=== PATIENT | female | born 1955 | race Caucasian/White ===

== ENCOUNTER 2018-04-14 06:47 | Inpatient (IN) | payer OTHER | END 2018-04-23 19:35 | LOC: EDH 06:47 → 4CH 04-23 13:08 → EDHIP 09:23 → 4CH 17:49 | PROC: 0B9G8ZX Drainage of Left Upper Lung Lobe, Via Natural or Artificial Opening Endoscopic, Diagnostic (ICD-10-PCS; principal; ~2018-04-14) | DX: J18.1 Lobar pneumonia, unspecified organism (principal); D69.6 Thrombocytopenia, unspecified; E11.22 Type 2 diabetes mellitus with diabetic chronic kidney disease; J90 Pleural effusion, not elsewhere classified; D70.9 Neutropenia, unspecified; I48.0 Paroxysmal atrial fibrillation; R04.2 Hemoptysis; N18.3 Chronic kidney disease, stage 3 (moderate); E11.9 Type 2 diabetes mellitus without complications; D64.9 Anemia, unspecified; R63.4 Abnormal weight loss; I10 Essential (primary) hypertension; E87.6 Hypokalemia; E78.2 Mixed hyperlipidemia; I25.10 Atherosclerotic heart disease of native coronary artery without angina pectoris; R53.81 Other malaise; I12.9 Hypertensive chronic kidney disease with stage 1 through stage 4 chronic kidney disease, or unspecified chronic kidney disease; R04.0 Epistaxis ==

== ENCOUNTER 2018-05-21 05:33 | Day surgery (SDC) | payer OTHER ==
[~2018-05-21] VITALS: Ht 137.2 cm; Wt 51.3 kg
[~2018-05-21 05:33] MED LIST: AMLO10TA7 PO; ATEN50TA PO; ATOR10 PO; ERGO500014 PO; FAMO20TA8 PO; FLUC200T8 PO; HYDR-4153 PO; ISOS30TA6 PO; LINA5TAB PO; LISI-613 PO; SERT100T12 PO
[2018-05-21] MEDS ORDERED: SODIUM CHLORIDE 0.9% 1000ML 1,000 ML IV ONE (05:47)
[2018-05-21 06:14] VITALS: BP 162/58
[2018-05-21] MEDS ORDERED: PROPOFOL 1000 MG/100 ML 100 ML IV ONE (06:44)
[2018-05-21 07:38] VITALS: BP 134/66
[2018-05-21 07:43] VITALS: BP 155/68
[2018-05-21 07:48] VITALS: BP 155/66
[2018-05-21 07:53] VITALS: BP 164/75
[2018-05-21 08:00] VITALS: BP 157/77
== END 2018-05-21 08:10 | disposition home or self-care (01) ==
LOC: DAH 05:33 → ENDO 05:33
PROVIDERS: ATTEND Internal Medicine
DX: Z12.11 Encounter for screening for malignant neoplasm of colon (principal); K63.5 Polyp of colon; K64.0 First degree hemorrhoids; K57.30 Diverticulosis of large intestine without perforation or abscess without bleeding; D50.9 Iron deficiency anemia, unspecified; K26.9 Duodenal ulcer, unspecified as acute or chronic, without hemorrhage or perforation; K31.89 Other diseases of stomach and duodenum; K22.8 Other specified diseases of esophagus; Z79.899 Other long term (current) drug therapy; Z98.890 Other specified postprocedural states; F32.9 Major depressive disorder, single episode, unspecified; K21.9 Gastro-esophageal reflux disease without esophagitis; I12.9 Hypertensive chronic kidney disease with stage 1 through stage 4 chronic kidney disease, or unspecified chronic kidney disease; E11.22 Type 2 diabetes mellitus with diabetic chronic kidney disease; N18.9 Chronic kidney disease, unspecified; E78.2 Mixed hyperlipidemia; G47.00 Insomnia, unspecified; Z79.01 Long term (current) use of anticoagulants; Z79.4 Long term (current) use of insulin; Z79.84 Long term (current) use of oral hypoglycemic drugs
CPT/HCPCS: 43239; 45380; 82948 ×2; A4606; J2704; J7030

== ENCOUNTER 2018-10-04 20:41 | Observation (INO) | payer OTHER ==
[~2018-10-04] VITALS: Ht 137.2 cm; Wt 51.9 kg
[~2018-10-04 20:41] MED LIST changes: -ERGO500014 PO
[2018-10-04 21:38] LABS: EOSINOPHILS % (AUTO) 9.2 % (0.0-8.0); HEMATOCRIT 36.5 % (36-48); MEAN CORPUSCULAR HGB CONC 33.7 g/dL (32.0-36.0); NEUTROPHILS % (AUTO) 64.8 % (40.0-77.0); NUCLEATED RED BLOOD CELLS 0.1 % (0.0-0.19); PLATELET COUNT (AUTO) 44 K/uL (130-400); RED BLOOD CELL COUNT(AUTO) 3.97 MIL/uL (4.00-5.50); RED CELL DISTRIBUTION WIDTH 14.5 % (11.0-15.5); WHITE BLOOD COUNT (AUTO) 4.5 K/uL (4.8-10.8)
[2018-10-04 21:49] LABS: CREATININE 2.2 mg/dL (0.5-1.5); POTASSIUM 4.2 mmol/L (3.5-5.1)
[2018-10-04] MEDS ORDERED: ASPIRIN 325 MG TABLET ONE (21:53)
[2018-10-04 21:54] LABS: ALBUMIN 3.6 g/dL (3.5-5.0); BILIRUBIN,TOTAL 0.4 mg/dL (0.2-1.0); TOTAL PROTEIN, SERUM 7.5 g/dL (6.0-8.3)
[2018-10-04] MEDS ORDERED: NITROGLYCERIN 1GM/1 INCH PACKET TD ONE (21:54)
[2018-10-04 21:59] LABS: APPEARANCE,URINE Clear (CLEAR); BILIRUBIN,URINE Negative (NEGATIVE); COLOR,URINE Yellow (YELLOW); GLUCOSE, URINE (UA) Negative (NEGATIVE); KETONES,URINE Negative (NEGATIVE); LEUKOCYTE ESTERASE ,URINE Small (NEGATIVE); NITRATE,URINE Negative (NEGATIVE); OCCULT BLOOD,URINE Negative (NEGATIVE); PROTEIN,URINE POS 2+ mg/dL (NEGATIVE); UROBILINOGEN,URINE 0.2 mg/dL (0.2-1.0)
[2018-10-04 22:19] LABS: BACTERIA,URINE None Seen /HPF (None Seen); MUCUS,URINE None Seen LPF (None Seen); SQUAMOUS EPITHELIAL CELL,UR None Seen /HPF (0-2)
[2018-10-04] MEDS ORDERED: ACETAMINOPHEN 325 MG TAB PO PRN (23:45)
[2018-10-04] MEDS ORDERED: ONDANSETRON HCL 4 MG/2 ML VIAL IV PRN (23:45)
[2018-10-04] MEDS ORDERED: NITROGLYCERIN 0.4 MG SL TAB SL PRN (23:45)
[2018-10-04] MEDS ORDERED: MORPHINE SULFATE 2 MG/ML 1ML SYG IV PRN (23:45)
[2018-10-04 23:49] LABS: CHOLESTEROL 129 mg/dL (<200); HDL CHOLESTEROL 112 mg/dL (35-85); LDL DIRECT 65 mg/dL (0-99); TRIGLYCERIDES 95 mg/dL (30-200)
[2018-10-05] VITALS (8 sets, daily range): BP systolic 151–203; BP diastolic 76–88
[2018-10-05] MEDS ORDERED: MORPHINE SULFATE 2 MG/ML 1ML SYG IV PRN (00:15)
[2018-10-05] MEDS ORDERED: OMEP40CA37 PO (04:18)
[2018-10-05] MEDS ORDERED: HYDR100T27 PO (04:18)
[2018-10-05] MEDS ORDERED: FERR325T22 PO (04:18)
[2018-10-05] MEDS: HYDRALAZINE HCL 20 MG/ML VIAL IV PRN (04:36)
[2018-10-05] MEDS: CEFTRIAXONE SODIUM 1 GM IVP SCH (04:36)
[2018-10-05 06:10] LABS: CREATINE KINASE, TOTAL 36 U/L (21-232); MYOGLOBIN 43 ng/mL (10-92); TROPONIN I < 0.04 ng/mL (0.00-0.06)
[2018-10-05] MEDS: HYDRALAZINE HCL 25 MG TABLET PO SCH ×3 (06:19→21:42)
[2018-10-05] MEDS: ENOXAPARIN SODIUM 30 MG/0.3 ML SQ SCH (08:31)
[2018-10-05] MEDS: ASPIRIN 325 MG TABLET PO SCH (08:34)
[2018-10-05] MEDS: FAMOTIDINE 20MG TAB 20 MG TAB PO SCH (08:34)
[2018-10-05] MEDS: LISINOPRIL 20 MG TABLET PO SCH ×2 (08:34→21:41)
[2018-10-05] MEDS: FERROUS SULFATE 325 MG TABLET.DR PO SCH (08:35)
[2018-10-05] MEDS: ATENOLOL 50 MG TABLET PO SCH ×2 (08:35→21:42)
[2018-10-05] MEDS: AMLODIPINE BESYLATE 5 MG TAB PO SCH (08:35)
[2018-10-05] MEDS: SERTRALINE HCL 50 MG TABLET PO SCH (08:35)
[2018-10-05] MEDS ORDERED: METOPROLOL TARTRATE 25 MG TAB PO SCH (09:00)
--- NOTE | 2018-10-05 09:00 | NUR ---
0900 WERE EXPLAIN TO PT , IN DETAILS REGARDING HER HOME MEDICATIONS WERE RESUME AND HER B/P MEDICATIONS TO HELP HER WITH HER B/P KEEPING STABLE.
[2018-10-05 10:20] LABS: CREATINE KINASE, TOTAL 32 U/L (21-232); MYOGLOBIN 38 ng/mL (10-92); TROPONIN I < 0.04 ng/mL (0.00-0.06)
--- NOTE | 2018-10-05 13:41 | NUR ---
DCP CM met with pt discussed dc plans. Pt is independent prior to admission, lives at home with spouse. Denies any eqiupments/services. Pt feels safe to go back home. DC plan to home once stable. CM to cont to follow up. Addendum: 10/05/18 at 1343 by MICHAEL SULTANA LVN CM Amended: Links added.
--- NOTE | 2018-10-05 16:00 | NUR ---
SHAHBAZ King. HERE FOR DR MILLAN . ASSESS IMAGINING OF HER CT SCAN .AND ALSO SPOKE WITH PT RE GARDING PLAN OF CARE. KEEP NPO AFTE MIDNITE AND WILL SPEAK WITH DR. STALLINGS OF ASSESSMENT
[2018-10-05 16:38] LABS: CREATINE KINASE, TOTAL 32 U/L (21-232); MYOGLOBIN 47 ng/mL (10-92); TROPONIN I < 0.04 ng/mL (0.00-0.06)
[2018-10-05] MEDS ORDERED: ATORVASTATIN CALCIUM 20 MG TABLET PO SCH (21:00)
[2018-10-05] MEDS: METOCLOPRAMIDE 10 MG/2 ML VIAL IVP SCH (21:40)
[2018-10-06] VITALS: BP 166/79
[2018-10-06 04:00] VITALS: BP 192/91
[2018-10-06] MEDS: CEFTRIAXONE SODIUM 1 GM IVP SCH (05:03)
[2018-10-06] MEDS: HYDRALAZINE HCL 25 MG TABLET PO SCH ×2 (05:05→13:37)
[2018-10-06 06:00] VITALS: BP 180/74
[2018-10-06] MEDS: METOCLOPRAMIDE 10 MG/2 ML VIAL IVP SCH ×3 (06:29→15:46)
[2018-10-06 07:56] VITALS: BP 163/73
[2018-10-06] MEDS: ASPIRIN 325 MG TABLET PO SCH (09:00)
[2018-10-06] MEDS: ENOXAPARIN SODIUM 30 MG/0.3 ML SQ SCH (09:00)
[2018-10-06] MEDS: FERROUS SULFATE 325 MG TABLET.DR PO SCH (09:51)
[2018-10-06] MEDS: AMLODIPINE BESYLATE 5 MG TAB PO SCH (09:51)
[2018-10-06] MEDS: LISINOPRIL 20 MG TABLET PO SCH (09:52)
[2018-10-06] MEDS: FAMOTIDINE 20MG TAB 20 MG TAB PO SCH (09:52)
[2018-10-06] MEDS: SERTRALINE HCL 50 MG TABLET PO SCH (09:52)
[2018-10-06] MEDS: ATENOLOL 50 MG TABLET PO SCH (09:53)
[2018-10-06 11:27] VITALS: BP 172/77
[2018-10-06] MEDS: HYDRALAZINE HCL 20 MG/ML VIAL IV PRN (11:49)
[2018-10-06 16:38] VITALS: BP 159/69
[2018-10-06] MEDS ORDERED: METO5 PO (17:58)
--- NOTE | 2018-10-06 20:06 | NUR ---
PATIENT DISCHARGE PATIENT DISCHARGED, IV DISCONTINUED, CATHLON INTACT, BLEEDING CONTROLLED, PATIENT TOLERATED WITHOUT INCIDENT.
== END 2018-10-06 19:55 | disposition home or self-care (01) ==
LOC: EDH 20:41 → EDHIP 23:03 → 3BH 10-05 03:41
PROVIDERS: ADMIT Family Medicine; ATTEND Family Medicine
DX: K43.9 Ventral hernia without obstruction or gangrene (principal); N39.0 Urinary tract infection, site not specified; I12.9 Hypertensive chronic kidney disease with stage 1 through stage 4 chronic kidney disease, or unspecified chronic kidney disease; E11.22 Type 2 diabetes mellitus with diabetic chronic kidney disease; N18.4 Chronic kidney disease, stage 4 (severe); E78.5 Hyperlipidemia, unspecified; E11.43 Type 2 diabetes mellitus with diabetic autonomic (poly)neuropathy; K31.84 Gastroparesis; Z87.11 Personal history of peptic ulcer disease; Z88.5 Allergy status to narcotic agent
CPT/HCPCS: 36415 ×2; 74176; 80053; 80061; 81001; 82150; 82550 ×3; 83690; 83874 ×3; 83880; 84484 ×4; 85025; 87088; 93005; 96374; 96375; 96376; 99284; G0378 ×45; J0360 ×2; J0696 ×2; J2765 ×4; 96365; J1650

== ENCOUNTER → 2018-12-03 | Outpatient (CLI) | payer OTHER ==
[~2018-12-03] MED LIST changes: +FERR325T22 PO; -FLUC200T8 PO; -HYDR-4153 PO; +HYDR100T27 PO; -ISOS30TA6 PO; +METO5 PO; +OMEP40CA13 PO
== END | disposition home or self-care (01) ==
LOC: RAH 07:29
PROVIDERS: ATTEND Family Medicine
DX: I12.9 Hypertensive chronic kidney disease with stage 1 through stage 4 chronic kidney disease, or unspecified chronic kidney disease (principal); N18.9 Chronic kidney disease, unspecified; N27.1 Small kidney, bilateral
CPT/HCPCS: 76770; 93975

== ENCOUNTER 2019-02-24 21:44 | Emergency (ER) | payer OTHER ==
[2019-02-24] MEDS ORDERED: FENTANYL CITRATE PF 50 MCG/1 ML 2ML VIAL ONE (21:59)
[2019-02-24 22:49] LABS: BASOPHILS % (AUTO) 0.4 % (0.0-5.0); EOSINOPHILS % (AUTO) 1.5 % (0.0-8.0); HEMATOCRIT 35.2 % (36-48); LYMPHOCYTES % (AUTO) 8.8 % (21.0-51.0); MEAN CORPUSCULAR HEMOGLOBIN 29.5 pg (27.0-33.0); MEAN CORPUSCULAR HGB CONC 33.5 g/dL (32.0-36.0); NEUTROPHILS % (AUTO) 83.8 % (40.0-77.0); PLATELET COUNT (AUTO) 54 K/uL (130-400); RED CELL DISTRIBUTION WIDTH 15.3 % (11.0-15.5); WHITE BLOOD COUNT (AUTO) 8.6 K/uL (4.8-10.8)
[2019-02-24 23:00] LABS: CREATININE 1.7 mg/dL (0.5-1.5); POTASSIUM 3.1 mmol/L (3.5-5.1)
[2019-02-24 23:04] LABS: ALBUMIN 3.3 g/dL (3.5-5.0); BILIRUBIN,TOTAL 0.6 mg/dL (0.2-1.0); TOTAL PROTEIN, SERUM 6.8 g/dL (6.0-8.3)
[2019-02-24 23:07] LABS: PLATELET MORPHOLOGY COMMENT DECREASED
[2019-02-24 23:25] LABS: INR 1.02 (0.85-1.15); PROTHROMBIN TIME 10.7 SEC (9.6-11.6)
[2019-02-25] MEDS ORDERED: TETANUS/DIPHTHERIA TOXOID [ADULT] 0.5 ML VIAL IM ONE (00:27)
[2019-02-25] MEDS ORDERED: LABETALOL 20 MG/4 ML DISP.SYRIN IV ONE (01:31)
== END 2019-02-25 02:34 | disposition home or self-care (01) ==
LOC: EDH 21:44
DX: S00.83XA Contusion of other part of head, initial encounter (principal); S49.92XA Unspecified injury of left shoulder and upper arm, initial encounter; M54.2 Cervicalgia; M54.6 Pain in thoracic spine; E11.9 Type 2 diabetes mellitus without complications; I10 Essential (primary) hypertension; Z88.6 Allergy status to analgesic agent; Z98.890 Other specified postprocedural states; W18.39XA Other fall on same level, initial encounter; Y93.89 Activity, other specified; Y92.89 Other specified places as the place of occurrence of the external cause; Y99.8 Other external cause status
CPT/HCPCS: 36415; 70450; 71250; 72125; 73030; 74176; 80053; 84484; 85025; 85610; 85730; 90471; 90714; 93005; 96374; 96375; 99285; J3010

== ENCOUNTER → 2019-04-26 | Outpatient (CLI) | payer OTHER | END | disposition home or self-care (01) | LOC: OIH 13:07 | PROVIDERS: ATTEND Internal Medicine | DX: S82.891D Other fracture of right lower leg, subsequent encounter for closed fracture with routine healing (principal); M81.0 Age-related osteoporosis without current pathological fracture; X58.XXXD Exposure to other specified factors, subsequent encounter | CPT/HCPCS: 73600 ==

== ENCOUNTER → 2019-09-28 | Outpatient (CLI) | payer OTHER ==
[~2019-09-28] MED LIST changes: +ALBUMIN (HUMAN) 25% 200 ML IV SCH
[2019-09-28 10:05] LABS: BASOPHILS % (AUTO) 0.7 % (0.0-5.0); EOSINOPHILS % (AUTO) 4.4 % (0.0-8.0); HEMATOCRIT 34.9 % (36-48); LYMPHOCYTES % (AUTO) 14.5 % (21.0-51.0); MEAN CORPUSCULAR HEMOGLOBIN 28.7 pg (27.0-33.0); MEAN CORPUSCULAR HGB CONC 32.1 g/dL (32.0-36.0); MEAN CORPUSCULAR VOLUME 89.5 fL (79-99); MONOCYTES % (AUTO) 5.6 % (3.0-13.0); NEUTROPHILS % (AUTO) 74.5 % (40.0-77.0); PLATELET COUNT (AUTO) 110 K/uL (130-400); RED CELL DISTRIBUTION WIDTH 14.6 % (11.0-15.5); WHITE BLOOD COUNT (AUTO) 5.9 K/uL (4.8-10.8)
[2019-09-28 10:18] LABS: ALBUMIN 2.2 g/dL (3.5-5.0); BILIRUBIN,TOTAL 0.5 mg/dL (0.2-1.0); CREATININE 1.6 mg/dL (0.5-1.5); POTASSIUM 3.2 mmol/L (3.5-5.1); TOTAL PROTEIN, SERUM 6.9 g/dL (6.0-8.3)
[2019-09-28 10:19] LABS: INR 1.13 (0.85-1.15); PROTHROMBIN TIME 12.1 SEC (9.6-11.6)
--- NOTE | 2019-09-28 10:20 | NUR ---
BP 220/120 PATIENT ARRIVED TO ROOM AND CONNECTED TO MONITORS. BP 220/120. PT STATES, "I TAKE BP MEDS BUT I DIDN'T TAKE THEM THIS MORNING. BUT I ALWAYS HAVE MY BP LIKE THAT." RELAXATION TECHNIQUES ATTEMPTED.
--- NOTE | 2019-09-28 10:49 | NUR ---
CALLED DR. DELUCA AND/OR COUNTERSINKER BALANCE SCREW HOLE. BP 226/125, HR 93/MIN. PT ASYMPTOMATIC. SPOKE TO MAGDALENA HENRY NP. STATES PATIENT TO TAKE MEDS SOON SHE ARRIVES HOME AND SHE IS TO RECHECK BP AT HOME. MAGDALENA STATES, "I WILL CALL PATIENT THIS AFTERNOON TO RECHECK ON HER." INFORMED PATIENT AND SPOUSE MR. SALAS OF FINDING AND TO MAKE SURE PATIENT TAKES ALL HER BP MEDS BECAUSE HER BP WAS EXTREMELY HIGH 220/120 AND TO RECHECK HER BP AT HOME AND TO BE WAITING FOR MAGDALENA THE COUNTERSINKER BALANCE SCREW HOLE PHONE CALL. MR. SALAS STATES, "OH YES THAT WHAT SHE NORMALLY RUNS." HE VERBALIZED UNDERSTANDING OF INSTRUCTIONS BY STATING YES I'LL MAKE SURE SHE TAKES HER MEDS WHEN SHE GETS HOME.
--- NOTE | 2019-09-28 11:05 | NUR ---
U/S GUIDED PARACENTESIS PROCEDURE PERFORMED BY DR. RUDOLPH. PUNCTURE SITE RIGHT LOWER QUADRANT AND PATIENT TOLERATED PROCEDURE WELL. TOTAL REMOVED 9.0 LITERS OF CLOUDY YELLOW FLUID. END OF PROCEDURE AT 1135. CATHETER REMOVED AND DRESSING APPLIED. NO BLEEDING NOTED. ALBUMIN 25% 50 GRAMS GIVEN IV PER ALBUMIN PROTOCOL. PIV DCD, BANDAID APPLIED, NO BLEEDING NOTED. DISCHARGE INSTRUCTION GIVEN TO PATIENT AND VERBALIZED UNDERSTANDING. DISCHARGED VIA W/C. AAO X 3 WITH NO C/O PAIN.
[2019-09-28 14:06] LABS: APPEARANCE BODY FLUID CLEAR (CLEAR); BODY FLUID WBC 93 /cu. mm.; COLOR,BODY FLUID YELLOW (LT YELLOW); SPECIMENTYPE,BODY FLUID ASCITES; TOTAL VOLUME,BODY FLUID 9000 mL
[2019-09-28 14:07] LABS: BODY FLUID RBC 762 /cu. mm.
[2019-09-28 14:13] LABS: ALBUMIN,BODY FLUID 0.7 g/dL
[2019-09-28 14:18] LABS: BF EOSINOPHIL 4 %; BF LYMPHOCYTE 19 %; BF MESOTHELIAL 68 %; BF MONOCYTE 8 %
== END ==
LOC: RAH 09:24
PROVIDERS: ATTEND Internal Medicine Gastroenterology
DX: R18.8 Other ascites (principal); K74.60 Unspecified cirrhosis of liver
CPT/HCPCS: 36415; 49083; 80053; 82042; 84157; 85025; 85610; 87071; 87205; 89051; A4215; P9046; 96365

== ENCOUNTER 2019-10-01 10:59 | Inpatient (IN) | payer OTHER ==
[~2019-10-01] VITALS: Ht 139.7 cm; Wt 46.0 kg
[~2019-10-01 10:59] MED LIST changes: -ALBUMIN (HUMAN) 25% 200 ML IV SCH
[2019-10-01] MEDS ORDERED: DEXTROSE 50%-WATER 50 ML DISP.SYRIN IV ONE ×2 (11:02→15:09)
[2019-10-01 11:28] LABS: BASOPHILS % (AUTO) 0.1 % (0.0-5.0); LYMPHOCYTES % (AUTO) 5.8 % (21.0-51.0); MEAN CORPUSCULAR HEMOGLOBIN 29.4 pg (27.0-33.0); MEAN CORPUSCULAR HGB CONC 31.3 g/dL (32.0-36.0); MEAN CORPUSCULAR VOLUME 93.8 fL (79-99); MONOCYTES % (AUTO) 2.5 % (3.0-13.0); NUCLEATED RED BLOOD CELLS 0.1 % (0.0-0.19); PLATELET COUNT (AUTO) 175 K/uL (130-400); RED BLOOD CELL COUNT(AUTO) 1.94 MIL/uL (4.00-5.50); RED CELL DISTRIBUTION WIDTH 16.7 % (11.0-15.5); WHITE BLOOD COUNT (AUTO) 17.3 K/uL (4.8-10.8)
[2019-10-01 11:45] LABS: HEMATOCRIT 18.2 % (36-48)
[2019-10-01 11:54] LABS: CREATININE 4.4 mg/dL (0.5-1.5); POTASSIUM 5.2 mmol/L (3.5-5.1)
[2019-10-01 12:03] LABS: ALBUMIN 1.9 g/dL (3.5-5.0); BILIRUBIN,TOTAL 2.1 mg/dL (0.2-1.0); TOTAL PROTEIN, SERUM 4.5 g/dL (6.0-8.3)
[2019-10-01] MEDS ORDERED: SODIUM CHLORIDE 0.9% 500ML 500 ML IV ONE ×2 (12:10→22:23)
[2019-10-01 13:00] LABS: RETICULOCYTE % (AUTO) 6.05 % (0.42-2.23)
[2019-10-01 13:05] LABS: APPEARANCE,URINE CLEAR (CLEAR); BILIRUBIN,URINE SMALL (NEGATIVE); COLOR,URINE YELLOW (YELLOW); GLUCOSE, URINE (UA) NEGATIVE (NEGATIVE); KETONES,URINE 5 mg/dL (NEGATIVE); LEUKOCYTE ESTERASE ,URINE NEGATIVE (NEGATIVE); NITRATE,URINE NEGATIVE (NEGATIVE); OCCULT BLOOD,URINE TRACE-INTACT (NEGATIVE); PH,URINE 5.5 (5.0-8.0); PROTEIN,URINE 100 mg/dL (NEGATIVE)
[2019-10-01 13:10] LABS: BACTERIA,URINE Rare /HPF (None Seen); RBC,URINE 0-1 /HPF (0-1); SQUAMOUS EPITHELIAL CELL,UR Rare /HPF (0-2)
[2019-10-01] MEDS ORDERED: SODIUM BICARB 8.4% 50ML SYRINGE IVP STA (13:15)
[2019-10-01] MEDS: SODIUM BICARB 8.4% 50ML SYRING 150 MEQ in DEXTROSE 5%-WATER 1,000 ML IV SCH (13:15)
[2019-10-01] MEDS ORDERED: CALCIUM GLUBIONATE PO STA (13:21)
[2019-10-01] MEDS ORDERED: [UNRECOGNIZED DRUG - OTHER] PO STA (13:21)
[2019-10-01] MEDS ORDERED: CEFTRIAXONE SODIUM 1 GM ONE (13:29)
[2019-10-01] MEDS ORDERED: SODIUM CHLORIDE 0.9% 50 ML IV ONE (13:29)
[2019-10-01 13:30] LABS: % IRON SATURATION 21.5 % (22-44)
[2019-10-01] MEDS ORDERED: METRONIDAZOLE 500MG/100ML BAG 100 ML IV SCH (14:00)
[2019-10-01] MEDS ORDERED: NON-FORMULARY MEDICATION 1 EACH (Hydralazine HCl 100 MG) PO SCH (14:00)
[2019-10-01] MEDS ORDERED: CALCIUM GLUCONATE 1 GM/10 ML VIAL IV STA (14:04)
[2019-10-01 14:34] LABS: BASOPHILS % (AUTO) 0.2 % (0.0-5.0); HEMATOCRIT 21.4 % (36-48); LYMPHOCYTES % (AUTO) 6.8 % (21.0-51.0); MEAN CORPUSCULAR HEMOGLOBIN 29.8 pg (27.0-33.0); MEAN CORPUSCULAR HGB CONC 31.3 g/dL (32.0-36.0); MEAN CORPUSCULAR VOLUME 95.1 fL (79-99); MONOCYTES % (AUTO) 4.6 % (3.0-13.0); NEUTROPHILS % (AUTO) 87.8 % (40.0-77.0); NUCLEATED RED BLOOD CELLS 0.1 % (0.0-0.19); PLATELET COUNT (AUTO) 187 K/uL (130-400); RED BLOOD CELL COUNT(AUTO) 2.25 MIL/uL (4.00-5.50); RED CELL DISTRIBUTION WIDTH 16.8 % (11.0-15.5); WHITE BLOOD COUNT (AUTO) 18.6 K/uL (4.8-10.8)
[2019-10-01 14:40] LABS: PARTIAL THROMBOPLASTIN TIME 62.3 SEC (26.3-35.5)
[2019-10-01 14:43] LABS: ABG BASE EXCESS -13.6 mmol/L (-2.0-3.0); ABG HCO3 11.9 mmol/L (21.0-28.0); ABG OXYGEN SATURATION 97.6 % (95.0-99.0); ABG PCO2 28 mmHg (32-45)
[2019-10-01 15:24] LABS: PROTHROMBIN TIME 50.1 SEC (9.6-11.6)
[2019-10-01 15:25] LABS: INR 4.93 (0.85-1.15)
[2019-10-01] MEDS ORDERED: SODIUM BICARB 50MEQ 50ML VIAL ONE (15:54)
[2019-10-01] MEDS ORDERED: CALCIUM GLUCONATE 1 GM/10 ML VIAL IV ONE (15:55)
[2019-10-01] MEDS ORDERED: SODIUM CHLORIDE 0.9% 100 ML IV ONE (15:57)
[2019-10-01] MEDS: INSULIN HUMULIN R 100 UNIT/ML 3ML SQ SCH (16:30)
[2019-10-01 17:20] VITALS: BP 133/77
[2019-10-01 19:50] VITALS: BP 137/80
[2019-10-01] MEDS: METRONIDAZOLE 500MG/100ML BAG 100 ML IV SCH (20:00)
[2019-10-01] MEDS ORDERED: ATENOLOL 50 MG TABLET PO SCH (21:00)
[2019-10-01] MEDS ORDERED: SODIUM CHLORIDE 0.9% 1000ML 1,000 ML IV SCH (21:00)
[2019-10-01] MEDS ORDERED: OCTREOTIDE ACETATE 1,250 MCG in SODIUM CHLORIDE 0.9% 250 ML IV SCH (21:00)
[2019-10-01 22:23] LABS: ABG BASE EXCESS -8.6 mmol/L (-2.0-3.0); ABG HCO3 15.8 mmol/L (21.0-28.0); ABG OXYGEN SATURATION 96.2 % (95.0-99.0); ABG PCO2 30 mmHg (32-45)
[2019-10-01] MEDS: SODIUM POLYSTYRENE SULFONATE 15 GM/60 ML ML PO SCH (22:30)
[2019-10-01 23:45] VITALS: BP 122/66
[2019-10-02] MEDS ORDERED: SODIUM CHLORIDE 0.9% 500ML 500 ML IV ONE (02:08)
[2019-10-02 05:01] LABS: ABG BASE EXCESS -11.8 mmol/L (-2.0-3.0); ABG OXYGEN SATURATION 94.2 % (95.0-99.0); ABG PCO2 27 mmHg (32-45)
--- NOTE | 2019-10-02 05:14 | NUR ---
ASSESSMENT 1999 CANNOT DOCUMENT ASSESSMENT DUE TO SOME DIFFICULTY WITH [employer]. 1900 ASSUMED CARE OF PT, PT LETHARGIC A&OX3, SATS 99% ON RA, PT BILATERAL BREATHSOUNDS CLEAR TO AUSCULTATION. PT ABD DISTENDED ON R SIDE WITH FIRM BRUISE NOTED, SEE CT OF ABD, NOTED HEMATOMA. PT ON TELE WITH VSS, NSR AND AFEBRILE. PT WITH BRIEF AND NO URINE AT THIS TIME. PT HAS L PIV TO WRIST, FLUSHES AND PATENT. PT 2ND PIV TO L AC PATENT NO S/S OF INFECTION TO EITHER IV SITE AT THIS TIME. PT HAS BICARBONATE 8.4% WITH 5% DEXTROSE TO L AC, AND PROTONIX 80MG/100CC OF NS AT 10CC/HR TO R PIV. PT HAS NO C/O OF PAIN AND NO CHANGE IN STATUS. 2100 PT GLUCOSE CHECKED AND 150 RESULT. PT LACTIC ACID 8.2, CALLED MD GUERRA, ANNA JANG AND UPDATED ON PT STATUS NEW ORDERS RECEIVED. 2215 PT R PIV INFILTRATED. ATTEMPTED X 3 FOR P IV SITE. 2215 PT 2 UNITS FFP INFUSED AND COMPLETE WITH NO REACTION AT 0130. PT HAS NO C/O PAIN AND NO CHANGE IN STATUS.VSS 0215 PT 1 U PRBC'S INFUSED WITHOUT REACTION COMPLETE AT 0430. PT L PIV OOZING BUT PATENT WITH LOW INFUSION RATE. FLAGYL INFUSED AND COMPLETE. 16F BRTIO PLACED WITH STERILE TECHNIQUE TO GRAVITY, KATHERYN COLORED URINE DRAINING. PT HAS NO COMPLAINTS AT THIS TIME, RESTING WITH NO C/O PAIN OR CHANGES IN STATUS. 0500 ABG'S DRAWN AND BICARB DRIP INFUSING PER MD ORDER. ANESTHESIOLOGY NOTIFIED OF PT STATUS AN D ORDER FOR CENTRAL VENOUS ACCESS PLACED; HOWEVER, PT INR 4.93 AND MD WANTED TO ASSESS PT IN AM. ALL OTHER INFUSIONS ON HOLD UNTIL 2ND ACCESS OBTAINED. PT RESTING QUIETLY NO CHANGES NOTED AND VSS.
[2019-10-02 07:58] LABS: INR 1.69 (0.85-1.15); PARTIAL THROMBOPLASTIN TIME 31.4 SEC (26.3-35.5); PROTHROMBIN TIME 17.9 SEC (9.6-11.6)
[2019-10-02 08:00] VITALS: BP 123/60
[2019-10-02] MEDS: INSULIN HUMULIN R 100 UNIT/ML 3ML SQ SCH ×8 (08:29→21:00)
[2019-10-02] MEDS ORDERED: NON-FORMULARY MEDICATION 1 EACH (Omeprazole 40 MG) PO SCH (09:00)
[2019-10-02] MEDS ORDERED: NON-FORMULARY MEDICATION 1 EACH (Amlodipine Besylate 10 MG) PO SCH (09:00)
[2019-10-02] MEDS ORDERED: FAMOTIDINE 20MG TAB 20 MG TAB PO SCH (09:00)
[2019-10-02] MEDS ORDERED: NON-FORMULARY MEDICATION 1 EACH (Sertraline HCl 100 MG) PO SCH (09:00)
[2019-10-02 09:01] LABS: ALBUMIN 2.5 g/dL (3.5-5.0); BILIRUBIN,TOTAL 4.7 mg/dL (0.2-1.0); CREATININE 4.2 mg/dL (0.5-1.5); POTASSIUM 4.2 mmol/L (3.5-5.1); THYROID STIMULATING HORMONE 1.85 uIU/mL (0.36-3.74); TOTAL PROTEIN, SERUM 5.5 g/dL (6.0-8.3)
[2019-10-02 09:36] LABS: HEMATOCRIT 27.3 % (36-48); MEAN CORPUSCULAR HGB CONC 32.6 g/dL (32.0-36.0); MEAN CORPUSCULAR VOLUME 88.9 fL (79-99); NUCLEATED RED BLOOD CELLS 2.2 % (0.0-0.19); RED BLOOD CELL COUNT(AUTO) 3.07 MIL/uL (4.00-5.50); RED CELL DISTRIBUTION WIDTH 15.9 % (11.0-15.5); WHITE BLOOD COUNT (AUTO) 9.5 K/uL (4.8-10.8)
[2019-10-02] MEDS: SERTRALINE HCL 50 MG TABLET PO SCH (10:00)
[2019-10-02] MEDS: CEFTRIAXONE SODIUM 1 GM IVP SCH (10:00)
[2019-10-02] MEDS: AMLODIPINE BESYLATE 5 MG TAB PO SCH (10:00)
[2019-10-02] MEDS: HYDRALAZINE HCL 25 MG TABLET PO SCH ×3 (10:00→21:00)
[2019-10-02] MEDS ORDERED: LIDOCAINE HCL MPF 1% 5ML VIAL ONE (11:10)
[2019-10-02 11:30] VITALS: BP 124/65
[2019-10-02] MEDS: SODIUM BICARB 8.4% 50ML SYRING 150 MEQ in DEXTROSE 5%-WATER 1,000 ML IV SCH ×2 (12:15→22:08)
[2019-10-02] MEDS: PANTOPRAZOLE SODIUM 80 MG in SODIUM CHLORIDE 0.9% 100 ML IV SCH (12:32)
[2019-10-02 13:04] LABS: % IRON SATURATION 38.6 % (22-44)
[2019-10-02] MEDS: METRONIDAZOLE 500MG/100ML BAG 100 ML IV SCH ×2 (13:55→20:00)
[2019-10-02] MEDS: PHARMACY COMMUNICATION MISC SCH ×9 (14:15→23:15)
[2019-10-02 15:30] VITALS: BP 121/62
[2019-10-02] MEDS: PHYTONADIONE 10 MG/1 ML AMP SQ SCH (15:32)
[2019-10-02] MEDS ORDERED: ALBUMIN (HUMAN) 25% 50 ML IV STA ×2 (16:16→18:00)
--- NOTE | 2019-10-02 17:35 | NUR ---
IA CALL TO SPOUSE AINSLEY FOR DC PLANNING STATES PATIENT LIVES WITH HIM, HAS TROUBLE WITH THE STAIRSP INTO THEIR MOBILE HOME -" I MADE A RAMP, BUT I DIDN'T KNOW HOW TO MAKE A RAMP, ITS TOO STEEP FOR HER" PATIENT WITH NEW DX OF CIRRHOSIS IN THE SPRING" I THINK SHE WAITED TOO LONG TO GO TO THE DOCTOR" STATS NO DME, NOW CONSIDERABLY WEAK AND DEPENDENT FOR CARE. UNALBE TO GET INTO THE TUB, HX OF FALLING HAD PARA DONE LAST THURSDAY, WAS ADVISED THEY REMOVED NINE LITERS, SINCE THEN SHE HAS NOT EATEN MUCH. SPOUSE STATES PATIENT HERNANDEZ NOT HAVE HER PHONE/COATING MANAGER WITH HER- SPOUSE GIVEN NUMBERS OF ROOM AND NURSING STATION, BUT ENCOURAGED TO BRING PATIENT'S PHONE FOR BETTER COMMUNICATION. SPOUSET STATES ITS NOT CHARGED AND NOT READY. FACE SHEET UPDATED WITH NUMBER TO USE. DCP HOME, SPOUSE TO TRANSPORT. ON REVIEW, PATIENT WILL PORBABLY NEED DME/HH. POSSIBLE HD ON ADMISSON? CONDITION GUARDED Addendum: 10/03/19 at 0930 by ESTHER WALTERS RN CM Amended: Links added.
[2019-10-02] MEDS ORDERED: ALBUMIN (HUMAN) 25% 50 ML IV SCH (18:22)
[2019-10-02] MEDS: MORPHINE SULFATE 2 MG/ML 1ML SYG IVP PRN ×2 (19:00→19:34)
[2019-10-02 21:36] VITALS: BP 138/70
[2019-10-02] MEDS: SODIUM POLYSTYRENE SULFONATE 15 GM/60 ML ML PO SCH (22:30)
[2019-10-03] VITALS (7 sets, daily range): BP systolic 147–167; BP diastolic 65–81
[2019-10-03] MEDS: PHARMACY COMMUNICATION MISC SCH ×23 (00:15→22:13)
[2019-10-03] MEDS: ALBUMIN (HUMAN) 25% 50 ML IV SCH ×5 (00:27→22:13)
[2019-10-03] MEDS: SODIUM BICARB 8.4% 50ML SYRING 150 MEQ in DEXTROSE 5%-WATER 1,000 ML IV SCH (03:57)
[2019-10-03] MEDS: INSULIN HUMULIN R 100 UNIT/ML 3ML SQ SCH ×12 (04:00→21:01)
[2019-10-03] MEDS: METRONIDAZOLE 500MG/100ML BAG 100 ML IV SCH ×3 (04:00→22:13)
[2019-10-03] MEDS: MORPHINE SULFATE 2 MG/ML 1ML SYG IVP PRN ×6 (06:21→20:47)
[2019-10-03] MEDS ORDERED: SODIUM BICARB 50MEQ 50ML VIAL IV SCH (07:11)
[2019-10-03 07:15] LABS: HEMATOCRIT 24.5 % (36-48); MEAN CORPUSCULAR HEMOGLOBIN 29.3 pg (27.0-33.0); MEAN CORPUSCULAR HGB CONC 33.5 g/dL (32.0-36.0); MEAN CORPUSCULAR VOLUME 87.5 fL (79-99); NUCLEATED RED BLOOD CELLS 2.4 % (0.0-0.19); PLATELET COUNT (AUTO) 62 K/uL (130-400); WHITE BLOOD COUNT (AUTO) 9.1 K/uL (4.8-10.8)
[2019-10-03 07:38] LABS: CREATININE 4.1 mg/dL (0.5-1.5); POTASSIUM 3.2 mmol/L (3.5-5.1)
[2019-10-03 07:42] LABS: INR 2.22 (0.85-1.15); PROTHROMBIN TIME 23.3 SEC (9.6-11.6)
[2019-10-03 08:35] LABS: BAND NEUTROPHILS % (MANUAL) 7 % (0-2); LYMPHOCYTES % (MANUAL) 10 % (22-44); MAN.DIFF COMMENT-IMPRESSION MANUAL DIFFERENTIAL; MONOCYTES % (MANUAL) 5 % (2-9); PLATELET MORPHOLOGY COMMENT DECREASED; SEGMENTED NEUTROPHILS % 78 % (40-70)
[2019-10-03] MEDS: SERTRALINE HCL 50 MG TABLET PO SCH (09:00)
[2019-10-03] MEDS: HYDRALAZINE HCL 25 MG TABLET PO SCH ×3 (09:00→22:12)
[2019-10-03] MEDS: AMLODIPINE BESYLATE 5 MG TAB PO SCH (09:00)
[2019-10-03] MEDS: SODIUM BICARBONATE 650 MG TAB PO SCH ×3 (09:00→17:00)
[2019-10-03] MEDS: CEFTRIAXONE SODIUM 1 GM IVP SCH (10:00)
--- NOTE | 2019-10-03 10:15 | NUR ---
CHART REVIEWED, MELD SCORE CALCULATED NA 133 CRE 4.1 BILI 4.7 INR 4.93 MORTALITY ESTIMATE 6 MON OF 71% ON THESE NUMBERS . CM TO FOLLOW MD RECOMMENDATIONS
[2019-10-03] MEDS: PHYTONADIONE 10 MG/1 ML AMP SQ SCH (13:37)
[2019-10-03] MEDS: SODIUM POLYSTYRENE SULFONATE 15 GM/60 ML ML PO SCH (22:12)
[2019-10-04] VITALS (8 sets, daily range): BP systolic 139–189; BP diastolic 77–98
[2019-10-04] MEDS: PHARMACY COMMUNICATION MISC SCH ×20 (00:36→23:15)
[2019-10-04] MEDS: HYDRALAZINE HCL 20 MG/ML VIAL IV PRN ×2 (03:33→21:21)
--- NOTE | 2019-10-04 03:41 | NUR ---
Elevated blood pressure Patient's blood pressure was 168/89 and she has orders for Hydralazine 10mg IV to be given, if SBP>160. Patient received Hydralazine 10mg IV for elevated blood pressure. Blood pressure will be monitored for results of medication given.
[2019-10-04] MEDS: METRONIDAZOLE 500MG/100ML BAG 100 ML IV SCH ×3 (04:15→20:21)
[2019-10-04] MEDS: ALBUMIN (HUMAN) 25% 50 ML IV SCH ×4 (04:16→23:30)
[2019-10-04] MEDS: INSULIN HUMULIN R 100 UNIT/ML 3ML SQ SCH ×7 (06:28→20:31)
--- NOTE | 2019-10-04 06:51 | NUR ---
PLACED CALL TO DR. BARKSDALE REGARDING CRITICAL LABS. THE NUMBER RANG AND A RECORDING STATED THE MAILBOX WAS FULL.
[2019-10-04] MEDS: SODIUM BICARBONATE 650 MG TAB PO SCH ×3 (08:00→16:52)
[2019-10-04] MEDS ORDERED: SODIUM CHLORIDE 0.9% 10 ML VIAL ONE (08:44)
[2019-10-04] MEDS ORDERED: POTASSIUM CHLORIDE 20MEQ/100ML 100 ML IV SCH (08:45)
[2019-10-04] MEDS: HYDRALAZINE HCL 25 MG TABLET PO SCH ×2 (09:00→14:00)
[2019-10-04] MEDS: AMLODIPINE BESYLATE 5 MG TAB PO SCH (09:00)
[2019-10-04] MEDS: SERTRALINE HCL 50 MG TABLET PO SCH (09:00)
--- NOTE | 2019-10-04 10:42 | NUR ---
RHYTHM CHANGE STAT EKG ORDERED, TELEMETRY CALLED AND STATED PT WENT INTO AFIB AROUND 1000 TODAY. B/P IS STABLE, WILL UPDATE PROVIDER WITH EKG IS DONE.
--- NOTE | 2019-10-04 10:44 | NUR ---
CODE STATUS SPOKE WITH MANAGER DESKTOP, SHE WILL BE CALLING TO DISCUSS CODE STATUS AND NEED FOR DIALYSIS. STATED YESTERDAY TO CM THAT HE DOESN'T THINK PT WILL WANT DIALYSIS.
[2019-10-04] MEDS: CEFTRIAXONE SODIUM 1 GM IVP SCH (11:07)
[2019-10-04] MEDS: PANTOPRAZOLE SODIUM 80 MG in SODIUM CHLORIDE 0.9% 100 ML IV SCH (11:08)
[2019-10-04] MEDS: PHYTONADIONE 10 MG/1 ML AMP SQ SCH (14:00)
--- NOTE | 2019-10-04 16:08 | NUR ---
NEW HOSPICE ORDER WAS ADVISED BY NURSE THAT SPOUSE AND PATIENT WANT HOSPICE- REC'D ORDER FROM [facility] AND ENTERED. CLAIFIRED HOSPICE CHOICE WITH SPOUSE PRIOR TO ENTERING ORDER Addendum: 10/05/19 at 1610 by ESTHER WALTERS RN CM Amended: Links added.
[2019-10-04] MEDS ORDERED: LORAZEPAM 2 MG/ML 1 ML VIAL IVP PRN (17:15)
[2019-10-04] MEDS ORDERED: LABETALOL HCL 5 MG/ML 20ML VIAL IV PRN (17:15)
--- NOTE | 2019-10-04 21:23 | NUR ---
Patient has an increased blood pressure reading Patient's blood pressure reading was 189/89, per tech. I gave hydralazine 10mg IV to assist with readings. Retook blood presure reading and it was 210/101, then checked left arm and the reading was 215/89 per CUSTOMER SERVICE REP. Patient is a DNR now and the discharge process will be followed up with home with hospice per 7A-7P nurse. Will continue to monitor patient and a call was placed to the doctor saxophone player to make aware of blood pressure reading and intervention.
--- NOTE | 2019-10-04 21:43 | NUR ---
Blood pressure is 185/86 Patient's blood pressure is starting to go down and RUBY Espino returned my call and I asked if I could give the other 10mg IV to assist with blood pressure. She said yes and it was given.
[2019-10-05] MEDS: PHARMACY COMMUNICATION MISC SCH ×11 (00:11→08:10)
--- NOTE | 2019-10-05 03:13 | NUR ---
Blood pressure of 194/96 Patient lying in bed, no distress noted. Blood pressure was taken and resulted as 194/96 in right arm. Administered Labetalol 10mg slow IV, per orders. Retook blood pressure and it was 137/76 in the left arm HR=86, after given IV medication.
[2019-10-05 03:40] VITALS: BP 137/76
[2019-10-05] MEDS: METRONIDAZOLE 500MG/100ML BAG 100 ML IV SCH ×3 (05:02→23:03)
[2019-10-05] MEDS: ALBUMIN (HUMAN) 25% 50 ML IV SCH (05:05)
[2019-10-05] MEDS: INSULIN HUMULIN R 100 UNIT/ML 3ML SQ SCH ×4 (06:55→21:00)
--- NOTE | 2019-10-05 07:34 | NUR ---
Potassium lab ordered Patient received a bolus on day shift of potassium. Her level before bolus was a 3.0, but no repeat of a potassium level to be drawn. A call was placed to a Ashley Osorio NP and she said to get a potassium level drawn.
--- NOTE | 2019-10-05 08:00 | NUR ---
Referral to [facility] Faxed referral to [facility]. Pat confirmed recd. and [facility] to obtain OOHDNR during admission from spouse.
[2019-10-05] MEDS: HYDRALAZINE HCL 20 MG/ML VIAL IV PRN (08:12)
[2019-10-05] MEDS: CEFTRIAXONE SODIUM 1 GM IVP SCH (08:30)
[2019-10-05] MEDS: MORPHINE SULFATE 2 MG/ML 1ML SYG IVP PRN ×2 (08:31→18:08)
[2019-10-05 10:34] VITALS: BP 176/77
--- NOTE | 2019-10-05 11:02 | NUR ---
Report called to ERIS Witt on 3rd floor. Patient given all morning meds and tolerated well. PRN hydralazine and morphine administered for elevated SBP and pain. Stat K level ordered and 3.1 resulted. [facility] and oncoming nurse made aware. Will recieve additional K after transfer. Addendum: 10/05/19 at 1109 by BRIAN ENAMORADO RN RN Patient transferred with continuous Protonix and octreotide drips.
[2019-10-05 12:00] VITALS: BP 144/94
[2019-10-05] MEDS: PHYTONADIONE 10 MG/1 ML AMP SQ SCH ×2 (14:00→17:14)
--- NOTE | 2019-10-05 14:00 | NUR ---
AWAITING OOHDNR FROM FROM ANDREA GUY AND CONFIRMATION FROM [facility]. MARIANNA SCHMID IN COMMUNICATION WITH [facility]. EMS PENDING SET UP Addendum: 10/05/19 at 1613 by ESTHER WALTERS RN CM Amended: Links added.
[2019-10-05] MEDS ORDERED: DEXTROSE 5%-LACTATED RINGERS 1,000 ML IV SCH (15:45)
[2019-10-05 16:00] VITALS: BP 187/99
--- NOTE | 2019-10-05 16:04 | NUR ---
CM Note: [facility] approval, pending DME to be delivered, EMS arranged. As per Tom RNCM pt has acceptance for [facility], pending DME to be delivered today, dcp for tomorrow. EMS arranged for tomorrow, primary nurse aware to call [facility] once pt ready to DC. Primary nurse aware. CM to cont to follow up.
--- NOTE | 2019-10-05 16:25 | NUR ---
Call from [facility], he will fax OOHDNR. DCP is for tomorrow. CM made aware.
[2019-10-05 19:30] VITALS: BP 161/100
[2019-10-05 23:31] VITALS: BP 153/93
[2019-10-06 03:40] VITALS: BP 138/68
[2019-10-06] MEDS: INSULIN HUMULIN R 100 UNIT/ML 3ML SQ SCH ×2 (06:38→11:30)
[2019-10-06] MEDS: METRONIDAZOLE 500MG/100ML BAG 100 ML IV SCH ×2 (06:38→12:01)
[2019-10-06 08:00] VITALS: BP 142/102
--- NOTE | 2019-10-06 08:07 | NUR ---
1ST. AM ROUNDS, REPORT, PT. SLEEPING SOUNDLY, 02 PER NC AT 2 LITERS.
--- NOTE | 2019-10-06 08:55 | NUR ---
[facility] reported DME has been delivered to pt's home. CM made aware.
[2019-10-06] MEDS: CEFTRIAXONE SODIUM 1 GM IVP SCH (09:28)
[2019-10-06 12:00] VITALS: BP 157/83
--- NOTE | 2019-10-06 14:00 | NUR ---
REPORT CALLED IN TO [facility] , TALKED TO TIFFANY YOST RN. PERTINENT INFO ALSO FAXED TO AMBULANCE SERVICE. CENTRAL LINE REMOVED, PRESSURE APPLIED, SITE DRESSED ONCE DETERMINED NO BLEEDING. PER HOSPICE REQUEST WILL LEAVE BR[facility]O CATH IN
--- NOTE | 2019-10-06 15:28 | NUR ---
CALLED AND WILL BE OUT OF REACH FOR 30 TO 45 MINUTES, GOING TO AIRPORT TO RADIATOR FITTER SON. EMS AWARE AND I WILL CALL THEM BACK ONCE IS HOME.
--- NOTE | 2019-10-06 17:23 | NUR ---
DISCHARGED NOW VIA EMS. DC PACKET WITH INST. GIVEN TO EMS STAFF TO CARRY TO FAMILY. HOSPICE TO RESUME CARE.
== END 2019-10-06 17:30 | disposition hospice, home (50) | DRG 377 ==
LOC: EDH 10:59 → EDHIP 13:15 → 4CH 17:20 → 3CH 10-05 11:35
PROVIDERS: ADMIT Internal Medicine Critical Care Medicine; ATTEND Internal Medicine Critical Care Medicine
PROC: 30233K1 Transfusion of Nonautologous Frozen Plasma into Peripheral Vein, Percutaneous Approach (ICD-10-PCS; principal; 2019-10-01)
PROC: 30233N1 Transfusion of Nonautologous Red Blood Cells into Peripheral Vein, Percutaneous Approach (ICD-10-PCS; 2019-10-01)
PROC: 02HV33Z Insertion of Infusion Device into Superior Vena Cava, Percutaneous Approach (ICD-10-PCS; 2019-10-02)
PROC: B548ZZA Ultrasonography of Superior Vena Cava, Guidance (ICD-10-PCS; 2019-10-02)
DX: K92.2 Gastrointestinal hemorrhage, unspecified (principal); J96.90 Respiratory failure, unspecified, unspecified whether with hypoxia or hypercapnia; N17.9 Acute kidney failure, unspecified; D62 Acute posthemorrhagic anemia; E87.2 Acidosis; G93.40 Encephalopathy, unspecified; E87.5 Hyperkalemia; K21.9 Gastro-esophageal reflux disease without esophagitis; F32.9 Major depressive disorder, single episode, unspecified; E78.00 Pure hypercholesterolemia, unspecified; R80.9 Proteinuria, unspecified; S30.1XXA Contusion of abdominal wall, initial encounter; E11.22 Type 2 diabetes mellitus with diabetic chronic kidney disease; E78.5 Hyperlipidemia, unspecified; I12.9 Hypertensive chronic kidney disease with stage 1 through stage 4 chronic kidney disease, or unspecified chronic kidney disease; K74.60 Unspecified cirrhosis of liver; N18.9 Chronic kidney disease, unspecified; R62.7 Adult failure to thrive; E11.649 Type 2 diabetes mellitus with hypoglycemia without coma; X58.XXXA Exposure to other specified factors, initial encounter; I95.9 Hypotension, unspecified; Z66 Do not resuscitate; Z79.899 Other long term (current) drug therapy; Z79.84 Long term (current) use of oral hypoglycemic drugs; Z68.23 Body mass index [BMI] 23.0-23.9, adult; Z88.5 Allergy status to narcotic agent; Y93.89 Activity, other specified; Y92.89 Other specified places as the place of occurrence of the external cause; Y99.8 Other external cause status; Z20.828 Contact with and (suspected) exposure to other viral communicable diseases
CPT/HCPCS: 36415; 36430; 36600; 71045; 74176; 76705; 80048; 80053; 81001; 82140; 82270; 82550; 82607; 82728; 82803; 82948; 83540; 83550; 83605; 84100; 84132; 84443; 84484; 85018; 85025; 85027; 85610; 85730; 86850; 86900; 86901; 86922; 86927; 87040; 87088; 93005; 99291; C9113; G0378; J0360; J0610; J0696; J1815; J2060; J2354; J3430; J3480; J3490; J7040; J7050; J7070; P9016; P9017; P9046; P9047; U0003